=== PATIENT | male | born 1945 | race Caucasian/White ===

== ENCOUNTER 2017-08-06 11:06 | Outpatient (CLI) | payer MEDICARE, OTHER ==
[~2017-08-06] VITALS: Ht 182.9 cm; Wt 86.4 kg
--- NOTE | ~2017-08-06 | HEMODYNAMI ---
PATIENT:SHARI RO MEDICAL RECORD: [id number] : 47 LOCATION:[facility] ADMISSION DATE: 08/06/17 Generatedon:08/06/201715:35 Patient name: SHARI RO Patient #: [id number] SSN: : 1945 Date of study: 08/06/2017 Page: Of Hemodynamic Procedure Report Patient Data Patient Demographics Procedure consent was obtained First Name: SHARI Gender: Male Last Name: JAYJAY : 1945 [facility] Initial: KYM Age: 72 year(s) Patient #: [id number] Race: Additional ID: [id number] Contact details Address: [address] [place] [address] State: [place] City: [place] Zip code: [address] Admission Admission Data Admission Date: 08/06/2017 Admission Time: 11:06 Arrival Date: 08/06/2017 Arrival Time: 14:00 Admit Source: Other Insurance Payor: Medicare Height (in.): 72 BSA: 2.1 (m2) Height (cm.): 182.88 BMI: 26.18 (kg/m2) Weight (lbs.): 193 Weight (kg.): 87.54 Lab Results Lab Result Date: 08/06/2017 Lab Result Time: 0:00 Biochemistry Name Units Result Min Max BUN mg/dl 27 --(----)-* 7 18 Creatinine mg/dl 2.3 --(----)-* 0.6 1.3 CBC Name Units Result Min Max Hemoglobin g/dl 12.9 -*(----)-- 13.5 17.5 Procedure Procedure Types Cath Procedure Diagnostic Procedure LHC LHC w/Coronaries Miscellaneous Procedures Moderate Sedation up to 45 minutes Peripheral Cath Diagnostic Procedure Cath Peripheral Renal Arteriogram Procedure Description Procedure Date Procedure Date: 08/06/2017 Procedure Start Time: 15:13 Procedure End Time: 15:34 Procedure Staff Name Function Heraclio Salas MD Performing Physician Daina Maldonado RT Monitor Marion Mustafa RT Scrub Radha Spaulding RN Nurse Procedure Data Cath Procedure Fluoroscopy Diagnostic fluoroscopy Total fluoroscopy Time: 6.8 time: 6.8 min min Diagnostic fluoroscopy Total fluoroscopy dose: 688 dose: 688 mGy mGy Contrast Material Contrast Material Type Amount (ml) Isovue 300 57 Entry Location Entry Primary Successful Side Size Upsize Upsize Entry Closure Succes sful Closure Location (Fr) 1 (Fr) 2 (Fr) Remarks Device Remarks Femoral Right 5 Fr Exoseal artery Estimated blood loss: 5 ml Diagnostic catheters Device Type Used For End Catheter Placement MULTIPACK JL 4.0 5Fr Left Coronary catheter Angiography MULTIPACK 3DRC 5Fr Multi-vessel catheter Angiography DIAGNOSTIC JR 4 5Fr Multi-vessel catheter ([id number]) Angiography MULTIPACK Pigtail 5 Fr LV Angiography catheter Procedure Complications No complications Procedure Medications Medication Administration Route Dosage 0.9% NaCl I.V. 100 ml/hr Oxygen NC 2 l/min Lidocaine 2% added to field 20 Heparin Flush Bag added to field 2 bags (1000units/500ml NS) Fentanyl I.V. 50 mcg Versed I.V. 1 mg Versed I.V. 0.5 mg Fentanyl I.V. 25 mcg Hemodynamics Rest BSA: 2.1 (m2) HGB: 12.9 (g/dl) O2 Consumption: Estimated: 236.09 (ml/min) O2 Con sumption indexed: Estimated:112.42 (ml/min/m) Heart Rate: 62 (bpm) Pressure Samples Time Site Value (mmHg) Purpose Heart Use Rate(bpm) 15:28 LV 203/3,15 Snapshot 58 15:29 AO 218/88(138) Pullback 58 15:29 LV 221/13,17 Pullback 58 Gradients Valve Time Site 1 Site 2 Mean SEP/DFP Peak To Heart Use (mmHg) (sec/min) Peak Rate (mmHg) (bpm) Aortic 15:29 LV AO 15 14 3 58 221/13,17 218/88(138) Calculations Valve P-P Mean Valve Index Valve Source Name Gradient Area Flow (cm2) Aortic 3 15 3 15 Snapshots Pre Cath Intra NCS Post Cath Vital Signs Time Heart Resp SPO2 NIBP (mmHg) Rhythm Pain Sedation Rate (ipm) (%) Status Level (bpm) 14:55:12 56 16 97 212/99(178) NSR 0 (11) 10(A) , No pain 14:59:47 56 18 99 217/113(184) NSR 0 (11) 10(A) , No pain 15:04:23 57 15 96 219/114(191) NSR 0 (11) 10(A) , No pain 15:08:53 53 15 95 202/96(169) NSR 0 (11) 10(A) , No pain 15:13:24 56 14 98 209/103(179) NSR 0 (11) 10(A) , No pain 15:17:56 59 16 99 200/105(176) NSR 0 (11) 10(A) , No pain 15:23:44 55 16 99 197/104(169) NSR 0 (11) 9(A) , No pain 15:28:13 63 16 99 210/97(181) NSR 0 (11) 9(A) , No pain 15:32:43 56 14 99 213/103(174) NSR 0 (11) 10(A) , No pain Medications Time Medication Route Dose Verified Delivered Reason Notes E ffectiveness by by 14:53:11 0.9% NaCl I.V. 100ml/hr Heraclio Radha used for Josue Spaulding RN procedure 14:53:27 Oxygen NC 2 l/min Heraclio Radha Per Josue Spaulding RN physician 14:53:38 Lidocaine 2% added 20ml Heraclio Heraclio for local to vial Josue Salas MD anesthetic field 14:53:50 Heparin Flush added 2 bags Heraclio Heraclio used for Bag to Josue Salas MD procedure (1000units/500ml field NS) 15:06:01 Fentanyl I.V. 50 mcg Heraclio Radha for Josue Spaulding RN sedation 15:06:14 Versed I.V. 1 mg Heraclio Radha for Josue Spaulding RN sedation 15:08:29 Versed I.V. 0.5 mg Heraclio Radha for Josue Spaulding RN sedation 15:08:38 Fentanyl I.V. 25 mcg Heraclio Radha for Josue Spaulding RN sedation Procedure Log Time Note 14:30:25 Radha Spaulding RN sent for patient. Start room use. 14:47:21 Informed consent obtained and on chart 14:48:18 Diagnostic Cath status Elective 14:48:26 Time tracking: Regular hours 14:48:31 Plan of Care:Hemodynamics will remain stable., Cardiac rhythm will remain stable., Comfort level will be maintained., Respiratory function will remain adequate., Patient/ family verbilizes understanding of procedure., Procedure tolerated without complication., Recovers from procedure without complications.. 14:48:43 Patient received from Pre/Post Procedure Room to CCL 2 Alert and oriented. Tansferred to table in Supine position. 14:48:44 Warm blankets applied, and mindy hugger turned on for patient comfort. 14:48:45 Correct patient and procedure confirmed by team. 14:48:45 ECG and BP/O2 sat monitors applied to patient. 14:52:54 Vital chart was started 14:53:11 0.9% NaCl 100ml/hr I.V. was administered by Radha Spaulding RN; used for procedure; 14:53:27 Oxygen 2 l/min NC was administered by Radha Spaulding RN; Per physician; 14:53:38 Lidocaine 2% 20ml vial added to field was administered by Heraclio Salas MD; for local anesthetic; 14:53:50 Heparin Flush Bag (1000units/500ml NS) 2 bags added to field was administered by Heraclio Salas MD; used for procedure; 14:55:42 Baseline sample Acquired. 14:55:52 Baseline sample Acquired. 14:55:56 Rhythm: sinus rhythm 14:55:58 Full Disclosure recording started 14:57:19 H&P Date Dictated: 08/06/2017 Within 30 days and on chart., H&P Addendum completed by physician on day of procedure. (MUST COMPLETE FOR ALL OUTPATIENTS). 14:57:21 Pre-procedure instructions explained to patient. 14:57:21 Pre-op teaching completed and patient verbalized understanding. 14:57:23 Family in waiting room. 14:57:24 Patient NPO since Midnight. 14:57:29 Is the patient allergic to Iodine/contrast media? No. 14:57:30 Was the patient premedicated? No 14:57:31 Is patient on blood thinner?No 14:57:36 Patient diabetic? No. 14:57:39 Previous problem with sedation/anesthesia? No ? 14:57:40 Snore? Yes 14:57:42 Sleep apnea? No 14:57:42 Deviated septum? No 14:57:43 Opens mouth fully? Yes 14:57:44 Sticks out tongue? Yes 14:57:45 Airway obstruction? No ? 14:57:48 Dentures? No ? 14:57:52 Pre procedure: right dorsailis pedis pulse 1+ Palpable, but thready & weak; easily obliterated 14:57:54 Pre procedure: left dorsailis pedis pulse 1+ Palpable, but thready & weak; easily obliterated 14:57:56 Patient pain scale 0/10 ?. 14:58:08 IV patent on arrival in left hand with 0.9% NaCl at [facility]. 15:00:02 Lab Result : BUN 27 mg/dl 15:00:02 Lab Result : Hemoglobin 12.9 g/dl 15:00:02 Lab Result : Creatinine 2.3 mg/dl 15:00:05 Lab results completed and on chart. 15:00:09 Right groin area was prepped with chlora-prep and draped in sterile fashion 15:00:10 Alarms reviewed by RWilmar N. 15:00:10 Sharps counted by scrub and verified by R.N. 15:00:13 Physician arrived 15:00:13 --------ALL STOP TIME OUT------ 15:00:14 Final Timeout: patient, procedure, and site verified with staff and physician. All members of the team are in agreement. 15:00:15 Right groin site verified by team. 15:00:18 Physical assessment completed. ASA score P 2 - A patient with mild systemic disease as per Heraclio Salas MD. 15:00:22 Sedation plan: IV Moderate Sedation Medication:Versed, Fentanyl 15:00:29 Use device set Femoral Dx 15:00:31 ACIST Syringe (88131) opened to sterile field. 15:00:31 Bag Decanter (2002S) opened to sterile field. 15:00:31 Medline Cath Pack ([id number]) opened to sterile field. 15:00:32 SHEATH 5FR [place] ([id number]) opened to sterile field. 15:00:32 DIAGNOSTIC WIRE .035 260cm J wire (056842) opened to sterile field. 15:00:34 ACIST Hand Control (28193) opened to sterile field. 15:00:35 ACIST Manifold (53099) opened to sterile field. 15:00:35 DIAGNOSTIC Multipack 5Fr catheter set ([id number]) opened to sterile field. 15:00:39 Tegaderm 4 x 4 (1626W) opened to sterile field. 15:01:31 Patient Height : 72 inches 15::34 Patient Weight : 193 lbs 15:01:34 Admit Source: Other 15:01:40 Insurance Payor : Medicare 15:01:46 Arrival Date: 08/06/2017 2:00:00 PM 15:03:50 Zero performed for pressure channel P1 15:06:01 Fentanyl 50 mcg I.V. was administered by Radha Spaulding RN; for sedation; 15:06:14 Versed 1 mg I.V. was administered by Radha Spaulding RN; for sedation; 15:08:29 Versed 0.5 mg I.V. was administered by Radha Spaulding RN; for sedation; 15:08:38 Fentanyl 25 mcg I.V. was administered by Radha Spaulding RN; for sedation; 15:13:12 Procedure started. 15:13:18 Local anesthetic to right femoral artery with Lidocaine 2% by Heraclio Salas MD.INITIAL ACCESS ONLY 15:13:27 A 5 Fr sheath was inserted into the Right Femoral artery 15:16:04 A MULTIPACK JL 4.0 5Fr catheter was advanced over the wire and used for Left Coronary Angiography. 15:16:59 LCA angiography performed. 15:17:18 Injector settings: Ml/sec: 3, Volume: 6, 15:18:33 Catheter removed. 15:18:56 A MULTIPACK 3DRC 5Fr catheter was advanced over the wire and used for Multi-vessel Angiography. 15:20:20 RCA angiography performed. 15:20:23 Injector settings: Ml/sec: 3, Volume: 6, 15:20:25 A DIAGNOSTIC JR 4 5Fr catheter ([id number]) was advanced over the wire and used for Multi-vessel Angiography. 15:27:00 Bilateral renal angiography performed. 15:27:06 Injector settings: Ml/sec: 3, Volume: 6, 15:27:50 Catheter removed. 15:28:03 A MULTIPACK Pigtail 5 Fr catheter was advanced over the wire and used for LV Angiography. 15:28:56 LV hemodynamics recorded. 15:28:57 LV gram done using GUERRA 15:29:00 Injector settings: Ml/sec: 5, Volume: 15, 15:29:25 EF : 35 % 15:29:47 Catheter removed. 15:30:44 EXOSEAL 5Fr (EX500) opened to sterile field. 15:31:22 Sheath removed intact; hemostasis achieved with Exoseal to the Right Femoral artery. 15:31:25 Procedure ended.(Physican Out) 15:31:37 Fluoroscopy time 06.80 minutes. 15:32:02 Fluoroscopy dose: 688 mGy 15:32:02 Flurop Dose total: 688 15:32:22 Contrast amount:Isovue 300 57ml. 15:32:25 Sharps counted by scrub and verified by R.N. 15:32:34 Insertion/operative site no bleeding no hematoma. 15:32:39 Post-op/insertion site Right Femoral artery dressed using a 4 x 4 and Tegaderm. 15:32:42 Post right femoral artery:stable 15:32:44 Post Procedure Pulses reassessed and unchanged 15:32:48 Post procedure rhythm: unchanged. 15:32:51 Estimated blood loss: 5 ml 15:32:52 Post procedure instruction explained to patient.Patient verbalizes understanding. 15:32:53 Patient needs reinforcement of post procedure teaching. 15:33:57 Procedure type changed to Cath procedure, Diagnostic procedure, LHC, LHC w/Coronaries, Miscellaneous Procedures, Moderate Sedation up to 45 minutes, Peripheral Cath Diagnostic Procedure, Cath Peripheral, Renal Arteriogram 15:33:58 Procedure and supply charges have been captured, reviewed, submitted and are correct. 15:34:02 Procedure Complication : No complications 15:34:04 Vital chart was stopped 15:34:05 See physician's report for complete and final results. 15:34:15 Report given to Pre/Post Procedure Room. 15:34:18 Patient transfered to Pre/Post Procedure Room with Stretcher. 15:34:20 Procedure ended. 15:34:20 Full Disclosure recording stopped 15:34:30 End room use (Document Last) Device Usage Item Name Manufacture Quantity Catalog Hospital Part Current Minimal L ot# / Number Charge Number Stock Stock Serial# Code ACIST Acist 1 62078 524344 811642 836281 20 Syringe Touch Bionics (53918) Systems Inc Bag Microtek 1 766964 08170 759366 5 Decanter Touch [employer]ion[employer] Inc. (2002S) Medline Cardinal 1 [id number] 789066 50892 125246 5 Cath Pack Health ([id number]) SHEATH 5FR Terumo 1 NSZ245 835541 876435 781252 40 [place] (FOY209) DIAGNOSTIC [facility] [place] 1 587417 047702 881907 178021 30 WIRE .035 260cm J wire (746236) ACIST Hand Acist 1 64760 648668 538030 425022 5 Control Medical (52246) Systems Inc ACIST Acist 1 33628 578264 296592 573957 5 Manifold Medical (41645) Systems Inc DIAGNOSTIC Cardinal 1 TB4265 509017 41157 974848 30 Multipack Health 5Fr catheter set (DH8077) Tegaderm 4 3M 1 1626W 264089 211915 640030 5 x 4 (1626W) MULTIPACK Cardinal 1 934363 5 JL 4.0 5Fr Health catheter MULTIPACK Cardinal 1 619862 5 3DRC 5Fr Health catheter DIAGNOSTIC Cardinal 1 [id number] 223755 599919 945594 5 JR 4 5Fr Health catheter ([id number]) MULTIPACK Cardinal 1 998711 5 Pigtail 5 Health Fr catheter EXOSEAL 5Fr Cardinal 1 EX500 139693 469324 275649 10 (EX500) Health Signature Audit Jolley Stage Time Signature Unsigned Intra-Procedure 08/06/2017 Daina Maldonado 3:35:19 PM RT(R) Signatures Monitor : Daina Maldonado RT Signature : Date : Time : [facility] [address] [place] [address]
[2017-08-06] MEDS ORDERED: FUROSEMIDE20 MG PO (12:12)
[2017-08-06] MEDS ORDERED: K-TAB10 MEQ PO (12:12)
[2017-08-06] MEDS ORDERED: BAYER CHEWABLE81 MG PO (12:13)
[2017-08-06] MEDS ORDERED: OMEPRAZOLE40 MG PO (12:13)
[2017-08-06] MEDS ORDERED: NORMODYNE / TR300 MG PO (12:13)
[2017-08-06] MEDS ORDERED: FLOMAX0.4 MG PO (12:14)
[2017-08-06] MEDS ORDERED: HYDRALAZINE HCL25 MG PO (12:14)
[2017-08-06] MEDS ORDERED: LIPITOR10 MG PO (12:15)
[2017-08-06 12:36] VITALS: BP 176/69; Ht 182.9 cm; Wt 86.4 kg
[2017-08-06 12:45] LABS: BASOPHILS 0.4 % (0-2); EOSINOPHILS 3.7 % (0-7); HEMATOCRIT 39.1 % (42.0-54.0); HEMOGLOBIN 12.9 g/dL (13.5-17.5); IMMATURE GRANULOCYTES 0.2 % (0-5); LYMPHOCYTES 25.5 % (15-50); MCH 32.1 pg (26.0-34.0); MCV 97.3 fL (80.0-100.0); NEUTROPHILS 61.2 % (40-80); PLATELET COUNT 286 10x3/uL (130-400); RBC 4.02 10x6/uL (4.20-6.10); RDW 13.6 % (11.5-14.5); WBC 10.4 10x3/uL (4.8-10.8)
[2017-08-06 12:53] LABS: CREATININE - SERUM 2.3 mg/dL (0.6-1.3)
== END 2017-08-06 17:53 | disposition home or self-care (01) ==
LOC: D.CATH 11:06
PROVIDERS: Internal Medicine Cardiovascular Disease
DX: I20.9 Angina pectoris, unspecified (principal); I10 Essential (primary) hypertension; Z01.812 Encounter for preprocedural laboratory examination